=== PATIENT | female | born 1995 ===

== ENCOUNTER 2022-10-27 21:28 | Emergency (ER) | payer SELFPAY ==
[~2022-10-27] VITALS: Ht 170.2 cm; Wt 75.0 kg
[2022-10-27 21:35] VITALS: BP 145/99
[2022-10-27 21:54] LABS: Source, Urine Clean Catch
[2022-10-27] MEDS ORDERED: Pyridium100 MG (22:03)
[2022-10-27 22:11] LABS: Bilirubin, Urine Neg (Neg); Blood, Urine 5+ (Neg); Glucose Qualitative, Urine Neg (Neg); Ketones, Urine Neg (Neg); Leukocyte Esterase, Urine 2+ (Neg); Nitrite, Urine Neg (Neg); Protein, Urine 2+ (Neg); Urobilinogen, Urine NORM (Normal); pH, Urine 6.5 (5.0-8.0)
[2022-10-27 22:27] LABS: Appearance, Urine Hazy (Clear); Color, Urine Yellow (P-Yellow)
[2022-10-27 22:28] LABS: Bacteria Few /hpf; Red Blood Cells, Urine 0-2 /hpf (0-2); Squamous Epithelial Cells Few /hpf (Few); White Blood Cells, Urine 50-100 /hpf (0-5)
[2022-10-27] MEDS ORDERED: Pyridium100 MG PO (22:48)
[2022-10-27] MEDS ORDERED: NITR100CA PO (22:48)
== END 2022-10-27 23:10 | disposition home or self-care (01) ==
LOC: ER 21:28
PROVIDERS: Student in an Organized Health Care Education/Training Program
DX: N30.91 Cystitis, unspecified with hematuria (principal); Z79.899 Other long term (current) drug therapy
CPT/HCPCS: 81001; 81025; 87086; A9270